=== PATIENT | female | born 1995 | race Caucasian/White ===

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

== ENCOUNTER 2017-05-08 00:56 | Emergency (ER) | payer MEDICAID ==
[~2017-05-08] VITALS: Ht 162.6 cm; Wt 71.0 kg
[~2017-05-08 00:56] MED LIST changes: +BACT800T5 PO; -BENZ100 PO; +DIFL150T PO; -MUCI600T PO
[2017-05-08 01:06] VITALS: BP 121/57; PULSE 104; RESP 18; TEMP 97.7; O2SAT 98
--- NOTE | 2017-05-08 02:49 | RADRPT ---
EXAM DATE/TIME: 05/08/2017 02:28 [facility] COMPARISON: No previous studies available for comparison. INDICATIONS : Left ankle pain post trampoline accident. MEDICAL HISTORY : None. SURGICAL HISTORY : None. ENCOUNTER: Initial ACUITY: 1 day PAIN SCORE: 10/10 LOCATION: Left ankle FINDINGS: Three view exam was performed of the left ankle. The bony structures are in normal alignment. No ev idence of fracture, dislocation, or soft tissue swelling. The ankle mortise is intact. No radiopaqu e foreign bodies are seen. Bony mineralization is normal. CONCLUSION: No acute fracture. Farhat Mendoza MD on May 08, 2017 at 2:48 Board Certified Radiologist. This report was verified electronically.
--- NOTE | 2017-05-08 02:50 | RADRPT ---
EXAM DATE/TIME: 05/08/2017 02:29 [facility] COMPARISON: No previous studies available for comparison. INDICATIONS : Right ankle pain post trampoline accident. MEDICAL HISTORY : None. SURGICAL HISTORY : None. ENCOUNTER: Initial ACUITY: 1 day PAIN SCORE: 5/10 LOCATION: Right ankle FINDINGS: Three view exam was performed of the right ankle. The bony structures are in normal alignment. No e vidence of fracture, dislocation, or soft tissue swelling. The ankle mortise is intact. No radiopaq ue foreign bodies are seen. Bony mineralization is normal. CONCLUSION: No acute fracture. Farhat Mendoza MD on May 08, 2017 at 2:48 Board Certified Radiologist. This report was verified electronically.
[2017-05-08 03:07] VITALS: BP 122/64; PULSE 88; RESP 18; O2SAT 98
--- NOTE | 2017-05-08 03:10 | PD ---
HPI Chief Complaint: Injury Time Seen by Provider: 02:06 Travel History International Travel<30 days: No Contact w/Intl Traveler<30days: No Traveled to known affect area: No History of Present Illness HPI 21 year-old female presents to the emergency department private transportation the care of her mother for bilateral ankle injury. According the patient just prior to arrival to the emergency department around 11:30 PM was jumping on trampoline she injured her ankles. Patient states that the majority of her pain is localized to the left ankle with swelling. Patient states the right ankle is sore but has full range of motion and is able to weight-bear without difficulty. No prior injury of the ankles area did patient rates pain as moderate to severe. Patient did take a leave prior to arrival to the emergency department. Patient's last period was 20 days ago and denies . PFSH Past Medical History Narrative Medical Heart murmur bilateral wrist fracture; no tobacco use: Nursing notes reviewed Medical History: Denies Significant Hx Cardiovascular Problems: Yes (HEART MURMUR INFANT) Diminished Hearing: No Musculoskeletal: Yes (FX LEFT WRIST, R WRITE) Immunizations Current: Yes ?: Not LMP: 04/21/17 Past Surgical History Surgical History: No Previous Surgery Social History Alcohol Use: No Tobacco Use: No Substance Use: No Allergies-Medications (Allergen,Severity, Reaction): Coded Allergies: No Known Allergies (Verified , 05/08/17) Reported Meds & Prescriptions Reported Meds & Active Scripts Active No Active Prescriptions or Reported Medications Review of Systems Except as stated in HPI: all other systems reviewed are Neg General / Constitutional: No: Fever HENT: No: Headaches Cardiovascular: No: Chest Pain or Discomfort Respiratory: No: Shortness of Breath Gastrointestinal: No: Abdominal Pain Genitourinary: No: Flank Pain Musculoskeletal: Positive: Edema (left ankle), Pain (bilateral ankles left greater than right) Skin: No Rash Neurologic: No: Weakness Psychiatric: No: Anxiety Hematologic/Lymphatic: No: Lymph Node Enlargement Physical Exam Narrative GENERAL: Well-developed well-nourished female in no acute distress no respiratory distress SKIN: Warm and dry. MUSCULOSKELETAL: No cyanosis, or edema. Attention right ankle demonstrates full range of motion dorsiflexion plantar flexion internal rotation and external rotation and inversion eversion; left ankle with swelling decrease range of motion secondary to pain. Bilateral dorsalis pedis pulses 2+ to palpation capillary refill brisk and less than 2 seconds per digit bilaterally with intact sensation and motor strength. BACK: Nontender without obvious deformity. No CVA tenderness. Data Data Last Documented VS Vital Signs Date Time Temp Pulse Resp B/P Pulse Ox O2 Delivery O2 Flow Rate FiO2 05/08/17 03:24 84 18 99 05/08/17 03:07 122/64 Room Air 05/08/17 01:06 97.7 Orders Ankle, Complete ([id number]) (05/08/17 ) Ankle, Complete ([id number]) (05/08/17 ) Ice/Cold Pack (05/08/17 02:07) Crutches (05/08/17 03:04) Splint Or Brace Apply/Monitor (05/08/17 03:04) MDM Medical Decision Making Medical Screen Exam Complete: Yes Emergency Medical Condition: Yes Medical Record Reviewed: Yes Interpretation(s) Vital Signs Date Time Temp Pulse Resp B/P Pulse Ox O2 Delivery O2 Flow Rate FiO2 05/08/17 01:51 98 18 98 Room Air 05/08/17 01:06 97.7 104 18 121/57 98 Last Impressions Ankle X-Ray 05/08/17 0000 Signed Impressions: Service Date/Time: Monday, May 08, 2017 02:29 - CONCLUSION: No acute fracture. Farhat Mendoza MD Ankle X-Ray 05/08/17 0000 Signed Impressions: Service Date/Time: Monday, May 08, 2017 02:28 - CONCLUSION: No acute fracture. Farhat Mendoza MD Differential Diagnosis Sprain strain subluxation dislocation fracture Narrative Course Ice pack applied imaging studies ordered Imaging studies no evidence of fracture subluxation or dislocation; plan padded Jose Alejandro wrap to left ankle Jose Alejandro wrap to right ankle crutches patient is artery take an anti-inflammatory medication prior to arrival to the emergency department. Diagnosis Primary Impression: Left ankle sprain Qualified Code: S93.402A - Sprain of left ankle, unspecified ligament, initial encounter Additional Impression: Right ankle strain Qualified Code: S96.911A - Strain of right ankle, initial encounter Referrals: Primary Care Physician call for appointment Patient Instructions: General Instructions Additional Instructions: Use crutches to assist ambulation Apply ice intermittently for first 12-24 hours Elevate lower extremities Follow-up with primary care provider May take as tolerated ibuprofen/Advil/Motrin or Aleve/Naprosyn/naproxen per package directions Return to the emergency department for any concerns or change in condition Scripts No Active Prescriptions or Reported Meds Disposition: DISCHARGE HOME Condition: Katia Mejia MD May 08, 2017 03:10 No Active Prescriptions or Reported Meds Disposition: DISCHARGE HOME Condition: Katia Mejia MD May 08, 2017 03:10
== END 2017-05-08 03:25 | disposition home or self-care (01) ==
LOC: PHED 00:56
DX: S93.402A Sprain of unspecified ligament of left ankle, initial encounter (principal); S96.911A Strain of unspecified muscle and tendon at ankle and foot level, right foot, initial encounter; X58.XXXA Exposure to other specified factors, initial encounter; Y93.44 Activity, trampolining
CPT/HCPCS: 73610; 99283; E0113